=== PATIENT | male | born 1970 | race Caucasian/White ===

== ENCOUNTER 2021-10-18 15:49 | Emergency (ER) | payer OTHER, SELFPAY ==
[2021-10-18 15:59] VITALS: BP 146/91; PULSE 68; RESP 16; TEMP 37.1; O2SAT 98
--- NOTE | 2021-10-18 16:00 | ED.EAR ---
HPI - Ear Problem General Chief complaint: Ear Stated complaint: Ear ache Time Seen by Provider: 10/18/21 16:00 Source: patient and RN notes reviewed History of Present Illness HPI Narrative: Patient is a 51-year-old male who presents the urgent care with complaints of left earache that started last night. Patient states he took Tylenol today and does not seem to have the earache this morning. Denies of any other upper respiratory complaints or fevers. Denies any drainage from the ear. No other acute complaints. No acute distress noted. Patient aware of the plan of care. Some parts of this dictation were generated by voice recognition software and may contain typographical and/or grammatical inaccuracies. Related Data Home Medications Medication Instructions Recorded Confirmed aspirin 81 mg tablet,delayed 81 mg PO DAILY 10/18/21 10/18/21 release (Adult Low Dose Aspirin) folic acid 1 mg tablet 1 mg PO DAILY 10/18/21 10/18/21 lisinopril 40 mg tablet 40 mg PO DAILY 10/18/21 10/18/21 Allergies Allergy/AdvReac Type Severity Reaction Status Date / Time iodine Allergy Rash Verified 10/18/21 16:04 Penicillins Allergy Rash Verified 10/18/21 16:04 Review of Systems Review of Systems: CONSTITUTIONAL: Denies fever, chills, or sweats. EYES: Denies visual changes, redness, or discharge. ENT: Denies rhinorrhea, congestion, sore throat. Reports of left otalgia CARDIOVASCULAR: Denies chest pain, palpitations, or edema. RESPIRATORY: Denies cough or dyspnea. GASTROINTESTINAL: Denies abdominal pain, nausea, vomiting, or diarrhea. GENITOURINARY: Denies dysuria or hematuria. SKIN: Denies rash or itching. MUSCULOSKELETAL: Denies back pain, joint pain, or myalgia. NEUROLOGIC: Denies headache, numbness, or weakness. All other systems reviewed are negative, except as documented in HPI. PMFSH Comments At the time of my signature, I reviewed and agree with the nursing past medical, surgical, social, and family history. There is no relevant family history pertinent to the patient complaint. Exam Narrative: GENERAL: This is a well-nourished, well-developed patient, in no apparent distress. HEAD: normocephalic, atraumatic. EYES: PERRL. Sclera clear/white. Vision is grossly intact. EARS: External ears normal, moderate erythema mild edema noted to the auditory canal of the left with a small scabbed abrasion outside of the TM. Bilateral TMs normal without perfusion. Right auditory canals clear and without drainage, Hearing grossly intact. NOSE: External nose normal with no obvious nasal discharge, nares without redness, no rhinorrhea. THROAT: Mucous membranes moist, posterior pharynx clear. NECK: Neck supple CARDIOVASCULAR: Regular rate and rhythm without murmurs, gallops, or rubs. RESPIRATORY: Clear to auscultation. Breath sounds equal bilaterally. No wheezes, rales, or rhonchi. SKIN: warm, intact with no suspicious lesions or rash, good texture and turgor. NEURO: awake, alert, and oriented to person, place and time. There were no obvious focal neurologic abnormalities. EXTREMITIES: No clubbing, cyanosis, or edema. Course Course Level of Care: Express Care Visit Vital Signs Vital signs: Vital Signs Temperature 98.7 F 10/18/21 15:59 Pulse Rate 68 10/18/21 15:59 Respiratory Rate 16 10/18/21 15:59 Blood Pressure 146/91 H 10/18/21 15:59 Pulse Oximetry 98 10/18/21 15:59 Oxygen Delivery Room Air 10/18/21 15:59 Temperature 98.7 F 10/18/21 15:59 Pulse Rate 68 10/18/21 15:59 Respiratory Rate 16 10/18/21 15:59 Blood Pressure 146/91 H 10/18/21 15:59 Pulse Oximetry 98 10/18/21 15:59 Oxygen Delivery Room Air 10/18/21 15:59 Reviewed-patient is informed that they may have pre-hypertension or hypertension based on a blood pressure reading in the department. I recommend the patient call the primary care provider listed on their discharge instructions or a physician of their choice this week to arrange
== END 2021-10-18 16:18 | disposition home or self-care (01) ==
PROVIDERS: Emergency Provider Nurse Practitioner Family
DX: H60.502 Unspecified acute noninfective otitis externa, left ear (principal)
CPT/HCPCS: 99213; G0463